=== PATIENT | male | born 1980 | race Caucasian/White ===

== ENCOUNTER 2024-03-06 11:55 | Outpatient (AMB) | payer OTHER, SELFPAY ==
--- NOTE | 2024-03-06 11:31 | MHC.PC.OV ---
Vital Signs 03/06/24 12:09 03/06/24 12:52 Height 6 ft 0.83 in Weight 241 lb 2 oz BMI 32.0 BP 169/98 H 130/92 H Blood Pressure Location Lt brachial Rt brachial Position Sitting Sitting Respiration 16 Pulse 65 Pulse Source Pulse Oximeter Temp 97.7 F Temp Source Oral Intake Visit Reasons: New patient Intake Note: New patient visit Outpatient Physical Therapist Assistant Required: No Allergies silver sulfadiazine Allergy (Unknown, Verified 03/06/24 12:06) chemical burn Tobacco use date assessed: 03/06/24 Dental Screening Dental Screen Date: 03/06/24 Did you have a dental visit in the last 12 months?: No Did you have a dental problem in the last 6 months where you did not have access to dental care?: No Was dental information given to patient?: Patient has dentist HPI HPI Comments History of Present Illness Details This is a 43-year-old male with a past medical history of obesity presenting to establish care with me. He needs a physical. Patient was seen by Dr. Feldman, but he says there was an error in medical records, and his record from [facility] was deleted. He says he was last seen about 2 years ago. His blood pressure is elevated today. His uncle has hypertension. No family history of heart disease. He smokes a cigar occasionally. He drinks 2 drinks 4 nights per week. It is usually whiskey or beer. Occasionally he has wine. He drinks 2 cups of coffee in the morning. He does not use decongestants. He has an umbilical hernia that is small on exam. It does not cause pain. He declines referral to General surgery. ROS: Constitutional: No unexplained weight loss, fever, chills, fatigue or night sweats. Eyes: No vision changes, blurry vision, double vision, eye pain, eye redness, eye discharge. ENT: No hearing loss, sneezing, congestion, runny nose or sore throat. Respiratory: No shortness of breath, cough or sputum production. Cardiovascular: No chest pain, chest pressure or chest discomfort. No palpitations or pedal edema. Gastrointestinal: No anorexia, nausea, vomiting or diarrhea. No abdominal pain or blood in stool. Genitourinary: No dysuria, hematuria, urinary frequency. No testicular masses, swelling, pain, discharge. Neurologic: No headache, dizziness, syncope, unilateral weakness, ataxia, numbness or tingling in the extremities. Musculoskeletal: No muscle pain, back pain, joint pain or swelling. Hematologic/Lymphatics: No bleeding or bruising. No painful lymph nodes. Skin: No rash or itching. Endocrine: No cold or heat intolerance. No polyuria or polydipsia. Psychiatric: No depression or anxiety. No SI/HI. Physical exam: Constitutional: Alert, in no distress. Head: Normocephalic. Eyes: Pupils are equal, round and reactive to light. Extraocular muscles intact. Ear, Nose and Throat: Canals clear. TMs normal. Normal nasal mucosa. No nasal discharge. No oral lesions. Neck: Supple, Full range of motion. No lymphadenopathy. No palpable thyroid masses. Respiratory: Clear to auscultation. Cardiovascular: S1 S2 regular. No murmurs. Gastrointestinal: Abdomen soft, non-tender, non-distended. Normal bowel sounds. No palpable masses. There is a small, reducible umbilical hernia. Genitourinary: Patient deferred.. Neurologic: No focal neurological deficits. Symmetric patellar reflexes. Moves all extremities spontaneously. Sensation intact bilaterally. Skin: No rashes or lesions. Musculoskeletal: No gross deformities. Normal range of motion. Extremities: Warm and well perfused. No clubbing, cyanosis or edema. 3+ peripheral pulses bilaterally. 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 1. Little interest or pleasure in doing things: not at all 2. Feeling down, depressed, or hopeless: not at all 3. Trouble falling or staying asleep, or sleeping too much: not at all 4. Feeling tired or having little energy: not at all 5. Poor appetite or overeating: not at all 6. Feeling bad about yourself - or that you are a failure or have let yourself or your family down: not at all 7. Trouble concentrating on things, such as reading the newspaper or watching television: not at all 8. Moving or speaking so slowly that other people could have noticed. Or the opposite - being so fidgety or restless that you have been moving around a lot more than usual: not at all 9. Thoughts that you would be better off or of hurting yourself in some way: not at all Total score: 0 Depression Screening Interpretation: Negative Depression Screening Done: Yes 29679 - PHQ-9 Billing: Yes Source: Developed by Drs. Adithya Rivera, Meg Trujillo, Mark Walter and colleagues, with an educational milton from [employer]. Thrive Questionnaire Date Thrive assessed: 03/06/24 I am a: Patient What is your living situation today?: I have a steady place to live Within the past 12 months, did the food you bought not last and you didn't have the money to get more?: Never true Within the past 12 months, did you worry whether your food would run out before you got money to buy more?: Never true Do you have trouble paying for medicines?: No Do you have trouble getting transportation to medical appointments?: No Do you have trouble paying your heating and electricity bill?: No Do you have trouble taking care of your child, family member or friend?: No Do you have trouble with day-to-day activities such as bathing, preparing meals, shopping, managing finances, etc.?: No Are you currently unemployed and looking for a job?: No Are you interested in more education?: No Please select the resources that you would like help with: None Currently or been in a relationship where the following occur: No concerns reported THRIVE Score: 0 AUDIT C Alcohol Use Questionnaire (AUDIT-C) 1. How often do you have a drink containing alcohol?: 2-3 times a week 2. How many drinks containing alcohol do you have on a typical day when you are drinking?: 1 or 2 3. How often do you have six or more drinks on one occasion?: Never Total Score: 3 TEJAS-7 AMB Questionnaire TEJAS-7 Date TEJAS - 7 assessed: 03/06/24 Feeling nervous, anxious, or on edge: 0 = Not at all Not being able to stop or control worryin = Not at all Worrying too much about different things: 0 = Not at all Trouble relaxin = Not at all Being so restless that it is hard to sit still: 0 = Not at all Becoming easily annoyed or irritable: 0 = Not at all Feeling afraid as if something awful might happen: 0 = Not at all Total TEJAS-7 score (0-4 normal; 5-9 mild; 10-14 moderate; 15-21 severe): 0 Source: Developed by Drs. Adithya Rivera, Meg Trujillo, Mark Walter and colleagues, with an educational milton from [employer]. TEJAS-7 Assessment Billing TEJAS-7 Assessment Tool: TEJAS-7 Assessment 95282 Physical exam (Primary Care) Vital Signs: Last Vital Signs Temp 97.7 F 03/06/24 12:09 Pulse 65 03/06/24 12:09 Resp 16 03/06/24 12:09 BP 130/92 H 03/06/24 12:52 BMI result Body Mass Index 32.0 Tobacco/Smoking Status: Tobacco use Status Tobacco use date assessed 03/06/24 03/06/24 11:32 Patient Tobacco Use Status Current someday Tobacco 03/06/24 12:13 Tobacco use type Cigar (occasionally) 03/06/24 12:13 e-Cigarette/Vaping Use Never Used 03/06/24 11:32 PHQ-9: PHQ-9 Score PHQ-9: Total score 0 03/06/24 17:30 Depression Screening Interpretation: Negative Thrive Assessment: Date of Thrive Assessment Date Thrive assessed 03/06/24 03/06/24 13:36 Currently or been in a relationship where the following occur: No concerns reported Assessment and Plan Assessment & Plan (1) Routine physical examination: Code(s): Z00.00 - Encounter for general adult medical examination without abnormal findings Plan: Patient is seen today for a routine physical. As part of this visit we reviewed the following issues, which are considered and essential part of preventative health in this age group: - Testicular cancer screening, which includes self exam teaching - Screening for colon cancer - due age 45 - Discussed Prostate cancer screening - Blood pressure screening - Cholesterol screening - Nutritional and exercise counseling - Counseling of injury prevention including fire prevention, smoke alarms and seat belt usage - Screening for depression - Prevention of and/or testing for infectious diseases - Education about skin cancer - Recommendations about immunizations - Recommendation of an eye exam - Screening for substance abuse (2) Obesity: Code(s): E66.9 - Obesity, unspecified Qualifiers: Obesity type: due to excess calories Obesity classification: adult class 1 (BMI 30 - 34.9) Serious obesity comorbidity presence: without serious comorbidity Body mass index: BMI 32.0-32.9 Qualified Code(s): E66.09 - Other obesity due to excess calories; Z68.32 - Body mass index [BMI] 32.0-32.9, adult Plan: Check fasting labs and TSH. Lifestyle modifications reviewed. He is motivated to work on weight loss. (3) Elevated blood pressure reading: Code(s): R03.0 - Elevated blood-pressure reading, without diagnosis of hypertension Plan: The patient and I reviewed lifestyle modifications in detail. He wants to try to avoid medication. He will implement these changes and follow up in 3 months to recheck. Plan Follow up in 3 months for a blood pressure recheck. Orders: Orders Lipid Panel 03/06/24 I10 - Essential (primary) hypertension, Z12.5 - Encounter for screening for malignant neoplasm of prostate, Z13.6 - Encounter for screening for cardiovascular disorders Comprehensive Met. Panel 03/06/24 I10 - Essential (primary) hypertension, Z12.5 - Encounter for screening for malignant neoplasm of prostate, Z13.6 - Encounter for screening for cardiovascular disorders Complete Blood Count no Diff 03/06/24 I10 - Essential (primary) hypertension, Z12.5 - Encounter for screening for malignant neoplasm of prostate, Z13.6 - Encounter for screening for cardiovascular disorders Prostate Specific Antigen 03/06/24 I10 - Essential (primary) hypertension, Z12.5 - Encounter for screening for malignant neoplasm of prostate, Z13.6 - Encounter for screening for cardiovascular disorders TSH reflex Free T4 03/06/24 I10 - Essential (primary) hypertension Coding Level of Care Code Est Pt Prev Care 40-64y(27548) Diagnoses Routine physical examination Z00.00 Class 1 obesity due to excess calories without serious comorbidity with body mass index (BMI) of 32.0 to 32.9 in adult E66.09; Z68.32 Obesity type: due to excess calories Obesity classification: adult class 1 (BMI 30 - 34.9) Serious obesity comorbidity presence: without serious comorbidity Body mass index: BMI 32.0-32.9 Elevated blood pressure reading R03.0 Additional Codes TEJAS-7 Assessment Billing - TEJAS-7 Assessment Tool: TEJAS-7 Assessment 78381 ([id number])
[2024-03-06 12:09] VITALS: BP 169/98; PULSE 65; RESP 16; TEMP 36.5; BMI 32.0
[2024-03-06 12:52] VITALS: BP 130/92
== END 2024-03-06 13:01 | disposition home or self-care (01) ==
PROVIDERS: PCP Family Medicine; Visit Provider Physician Assistant Medical
DX: Z00.00 Encounter for general adult medical examination without abnormal findings (principal); E66.09 Other obesity due to excess calories; Z68.32 Body mass index [BMI] 32.0-32.9, adult; R03.0 Elevated blood-pressure reading, without diagnosis of hypertension

== ENCOUNTER → 2024-03-06 11:55 | Outpatient (BNVA) | payer OTHER, SELFPAY | PROVIDERS: PCP Family Medicine; Visit Provider Physician Assistant Medical | DX: Z00.01 Encounter for general adult medical examination with abnormal findings (principal); R03.0 Elevated blood-pressure reading, without diagnosis of hypertension; E66.09 Other obesity due to excess calories; Z68.32 Body mass index [BMI] 32.0-32.9, adult | CPT/HCPCS: 96127 ==

== ENCOUNTER 2024-05-23 08:28 | Outpatient (REF) | payer OTHER, SELFPAY ==
[2024-05-23 11:51] LABS: Hematocrit 44.8 % (42.0-52.0); Hemoglobin 15.6 g/dl (14.0-18.0); Mean Corpuscular HGB Conc 34.8 g/dl (31.0-36.0); Mean Corpuscular Hemoglobin 31.3 pg (27.0-33.0); Mean Platelet Volume 9.7 fL (9.4-12.4); Platelet Count 246 X10*3/uL (160-400); Red Blood Count 4.98 X10*6/uL (4.60-5.80); Red Cell Distribution Width 11.9 % (11.0-16.0); White Blood Count 4.9 X10*3/uL (4.8-10.8)
[2024-05-23 12:30] LABS: Prostate Specific Antigen 1.22 ng/mL (<0.05-4.0)
[2024-05-23 12:42] LABS: TSH reflex Free T4 1.44 uIU/mL (0.32-4.0)
[2024-05-23 12:53] LABS: Anion Gap 12 (12-20)
[2024-05-23 12:58] LABS: Alanine Aminotransferase 23 U/L (0-40); Albumin Level 4.4 g/dL (3.5-5.0); Alkaline Phosphatase 41 U/L (39-117); Aspartate Amino Transferase 23 U/L (5-37); Bilirubin Total 0.9 mg/dL (0.0-1.0); Blood Urea Nitrogen 12 mg/dL (9-16); Calcium 9.5 mg/dL (8.4-10.2); Carbon Dioxide 30 mmol/L (22-29); Chloride 102 mmol/L (96-108); Cholesterol 236 mg/dL (<200); Estimated Glomerular Filt Rate > 60; Glucose Random 97 mg/dL (60-115); HDL Cholesterol 60 mg/dL (>40); LDL Cholesterol Calculated 162 mg/dL (<100); Potassium 4.4 mmol/L (3.3-5.1); Sodium 140 mmol/L (135-145); Total Protein 7.1 g/dL (6.5-8.0); Triglycerides 74 mg/dL (<150)
== END 2024-05-23 08:29 | disposition home or self-care (01) ==
LOC: HO.WFDLDS 08:28
PROVIDERS: Visit Provider Physician Assistant Medical
DX: Z12.5 Encounter for screening for malignant neoplasm of prostate (principal); Z13.6 Encounter for screening for cardiovascular disorders; I10 Essential (primary) hypertension
CPT/HCPCS: 36415; 80053; 80061; 84153; 84443; 85027

== ENCOUNTER 2024-05-29 11:32 | Outpatient (AMB) | payer OTHER, SELFPAY ==
--- NOTE | 2024-05-29 11:37 | A.OFFPC_ITS ---
Vital Signs 05/29/24 11:41 05/29/24 12:04 Height 6 ft 0.83 in Weight 228 lb 2 oz BMI 30.2 BP 144/80 H 138/90 H Blood Pressure Location Lt brachial Position Sitting Respiration 14 Pulse 76 Pulse Source Pulse Oximeter Pulse Oximetry (%) 97 Oxygen Delivery Method Room Air Intake Visit Reasons: HTN recheck Intake Note: follow up on htn Beef Specialist Required: No Allergies silver sulfadiazine Allergy (Unknown, Verified 05/29/24 11:37) chemical burn Tobacco use date assessed: 03/06/24 Dental Screening Dental Screen Date: 05/29/24 Did you have a dental visit in the last 12 months?: Yes Did you have a dental problem in the last 6 months where you did not have access to dental care?: No Was dental information given to patient?: Patient has dentist HPI HPI Comments History of Present Illness Details 44-year-old male with a past medical his tory of elevated blood pressure and obesity presents for follow up. The patient has been working on modifying his lifestyle. He decreased portion sizes. He lost 13 lb since February. Patient says during the past month he has not been able to exercise as much because he was selling his house. His elliptical wheels also broke so he ordered new ones. He also celebrated the and was not as good about his diet. His blood pressure today is still elevated. It is 138/90 when I rechecked it. He has no symptoms related to hypertension. He is a nonsmoker aside from an occasional cigar. He is decreasing caffeine consumption. He was drinking 2 cups of coffee per day. Today he did not have coffee. We reviewed his lab results with show that his LDL cholesterol is elevated though it has decreased since 2019. His ASCVD risk score is 2.6%. ROS: Constitutional: No unexplained weight loss, fever, chills, fatigue or night sweats. Eyes: No vision changes Respiratory: No shortness of breath Cardiovascular: No chest pain, chest pressure or chest discomfort. No palpitations or pedal edema. Neurologic: No headache, dizziness, syncope Physical exam: Constitutional: Alert, in no distress. Respiratory: Clear to auscultation. Cardiovascular: S1 S2 regular. No murmurs Neurologic: No focal neurological deficits. 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 1. Little interest or pleasure in doing things: not at all 2. Feeling down, depressed, or hopeless: not at all 3. Trouble falling or staying asleep, or sleeping too much: not at all 4. Feeling tired or having little energy: not at all 5. Poor appetite or overeating: not at all 6. Feeling bad about yourself - or that you are a failure or have let yourself or your family down: not at all 7. Trouble concentrating on things, such as reading the newspaper or watching television: not at all 8. Moving or speaking so slowly that other people could have noticed. Or the opposite - being so fidgety or restless that you have been moving around a lot more than usual: not at all 9. Thoughts that you would be better off or of hurting yourself in some way: not at all Total score: 0 78618 - PHQ-9 Billing: Yes Source: Developed by Drs. Adithya Rivera, Meg Trujillo, Mark Walter and colleagues, with an educational milton from [employer]. Thrive Questionnaire Date Thrive assessed: 05/29/24 I am a: Patient What is your living situation today?: I have a steady place to live Within the past 12 months, did the food you bought not last and you didn't have the money to get more?: Never true Within the past 12 months, did you worry whether your food would run out before you got money to buy more?: Never true Do you have trouble paying for medicines?: No Do you have trouble getting transportation to medical appointments?: No Do you have trouble paying your heating and electricity bill?: No Do you have trouble taking care of your child, family member or friend?: No Do you have trouble with day-to-day activities such as bathing, preparing meals, shopping, managing finances, etc.?: No Are you currently unemployed and looking for a job?: No Are you interested in more education?: No Please select the resources that you would like help with: None Currently or been in a relationship where the following occur: No concerns reported THRIVE Score: 0 AUDIT C Alcohol Use Questionnaire (AUDIT-C) 1. How often do you have a drink containing alcohol?: 2-3 times a week Total Score: 3 TEJAS-7 AMB Questionnaire TEJAS-7 Date TEJAS - 7 assessed: 05/29/24 Feeling nervous, anxious, or on edge: 0 = Not at all Not being able to stop or control worryin = Not at all Worrying too much about different things: 0 = Not at all Trouble relaxin = Not at all Being so restless that it is hard to sit still: 0 = Not at all Becoming easily annoyed or irritable: 0 = Not at all Feeling afraid as if something awful might happen: 0 = Not at all Total TEJAS-7 score (0-4 normal; 5-9 mild; 10-14 moderate; 15-21 severe): 0 Source: Developed by Drs. Adithya Rivera, Meg Trujillo, Mark Walter and colleagues, with an educational milton from [employer]. TEJAS-7 Assessment Billing TEJAS-7 Assessment Tool: TEJAS-7 Assessment 25641 Physical exam (Primary Care) Vital Signs: Last Vital Signs Pulse 76 05/29/24 11:41 Resp 14 05/29/24 11:41 BP 144/80 H 05/29/24 11:41 Pulse Ox 97 05/29/24 11:41 Oxygen Delivery Method Room Air 05/29/24 11:41 BMI result Body Mass Index 30.2 Tobacco/Smoking Status: Tobacco use Status Tobacco use date assessed 03/06/24 05/29/24 11:39 Patient Tobacco Use Status Current someday Tobacco 05/29/24 11:39 Tobacco use type Cigar (occasionally) 05/29/24 11:39 e-Cigarette/Vaping Use Never Used 05/29/24 11:39 PHQ-9: PHQ-9 Score PHQ-9: Total score 0 05/29/24 11:39 Thrive Assessment: Date of Thrive Assessment Date Thrive assessed 05/29/24 05/29/24 11:39 Currently or been in a relationship where the following occur: No concerns reported Coding Level of Care Code Est Pt Level 4 (03552) Complex EM visit Add On G2211 Diagnoses Pure hypercholesterolemia E78.00 Essential hypertension I10 Class 1 obesity E66.811 Additional Codes TEJAS-7 Assessment Billing - TEJAS-7 Assessment Tool: TEJAS-7 Assessment 50793 ([id number]) PHQ-9 - 85540 - PHQ-9 Billing: Yes ([id number]) Assessment & Plan Assessment & Plan (1) Pure hypercholesterolemia: Code(s): E78.00 - Pure hypercholesterolemia, unspecified Category: Medical (2) Essential hypertension: Code(s): I10 - Essential (primary) hypertension Category: Medical (3) Class 1 obesity: Code(s): E66.811 - Obesity, class 1 Category: Medical Plan Congratulated patient on weight loss. He will continue with lifestyle modification. He declines medication for hypertension. He would like to work on his diet and wait for another 4 months and return for a visit. I gave him a prescription for a blood pressure cuff to check readings at home. Advised him to bring this with him to his next appointment. We discussed following the Mediterranean diet and increasing fibrous fruits and vegetables in his diet. He will recheck his lipid profile a week before his next appointment. Fortunately 10 year ASCVD risk score is low. Follow up in 4 months for hyperlipidemia and hypertension. Orders: Orders Lipid Panel 4 Months E78.5 - Hyperlipidemia, unspecified Medications: New miscellaneous medical supply (Blood Pressure Cuff) As directed 1 ea 0RF R03.0 - Elevated blood-pressure reading, without diagnosis of hypertension
[2024-05-29 11:41] VITALS: BP 144/80; PULSE 76; RESP 14; O2SAT 97; BMI 30.2
[2024-05-29 12:04] VITALS: BP 138/90
== END 2024-05-29 12:16 | disposition home or self-care (01) ==
PROVIDERS: PCP Physician Assistant Medical; Visit Provider Physician Assistant Medical
DX: E78.00 Pure hypercholesterolemia, unspecified (principal); I10 Essential (primary) hypertension; E66.811 Obesity, class 1; Z68.30 Body mass index [BMI] 30.0-30.9, adult

== ENCOUNTER 2024-10-05 11:36 | Outpatient (AMB) | payer OTHER, SELFPAY ==
--- NOTE | 2024-10-05 11:44 | A.OFFPC_ITS ---
Vital Signs 10/05/24 11:49 10/05/24 11:53 Height 6 ft 1 in Weight 231 lb 4 oz BMI 30.5 BP 118/82 122/68 Blood Pressure Location Rt brachial Lt brachial Position Sitting Sitting Pulse 63 Pulse Source Pulse Oximeter Temp 98.6 F Temp Source Temporal Artery Scan Pulse Oximetry (%) 97 Oxygen Delivery Method Room Air Intake Visit Reasons: recheck BP and HLD Intake Note: Buster presents in the office today for recheck of his blood pressure and is HLD. Allergies silver sulfadiazine Allergy (Unknown, Verified 10/05/24 11:47) chemical burn Tobacco use date assessed: 10/05/24 Dental Screening Dental Screen Date: 10/05/24 Did you have a dental visit in the last 12 months?: Yes Did you have a dental problem in the last 6 months where you did not have access to dental care?: No Was dental information given to patient?: Patient has dentist HPI HPI Comments History of Present Illness Details 44-year-old male with a past medical his tory of elevated blood pressure and obesity presents for follow up. Since February 2024 he has kept off 10 lb. He likes to do the elliptical and bike. His blood pressure at his last appointment was elevated at 138/90. Today his blood pressure is normal. He has been working on lifestyle modifications. His labs show that he had elevated LDL cholesterol though it had decreased since 2019. When his ASCVD risk score was calculated at that time it was 2.6%. He occasionally has a cigar, but he does not smoke cigarettes. He denies chest pain or shortness of breath. ROS: Constitutional: No unexplained weight loss, fever, chills, fatigue or night sweats. Eyes: No vision changes Respiratory: No shortness of breath Cardiovascular: No chest pain, chest pressure or chest discomfort. No palpitations or pedal edema. Neurologic: No headache, dizziness, syncope Physical exam: Constitutional: Alert, in no distress. Respiratory: Clear to auscultation. Cardiovascular: S1 S2 regular. No murmurs Neurologic: No focal neurological deficits. [facility] Medical History (Updated 05/29/24 @ 13:44 by BASSEM Perez) Class 1 obesity Essential hypertension Pure hypercholesterolemia Elevated blood pressure reading Obesity Routine physical examination Family History Mother Breast cancer Maternal Grandmother Breast cancer Social History (Updated 10/05/24 @ 11:48 by Raya Torres MA) Housing: House Alcohol intake: current Patient Tobacco Use Status: Current someday Tobacco user Tobacco use type: Cigar (occasionally) Years Smoked: 8 e-Cigarette/Vaping Use: Never Used Second Hand Smoke Exposure: No service: Yes Current occupational status: employed 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 1. Little interest or pleasure in doing things: not at all 2. Feeling down, depressed, or hopeless: not at all 3. Trouble falling or staying asleep, or sleeping too much: not at all 4. Feeling tired or having little energy: not at all 5. Poor appetite or overeating: not at all 6. Feeling bad about yourself - or that you are a failure or have let yourself or your family down: not at all 7. Trouble concentrating on things, such as reading the newspaper or watching television: not at all 8. Moving or speaking so slowly that other people could have noticed. Or the opposite - being so fidgety or restless that you have been moving around a lot more than usual: not at all 9. Thoughts that you would be better off or of hurting yourself in some way: not at all Total score: 0 Depression Screening Interpretation: Negative Depression Screening Done: Yes 75189 - PHQ-9 Billing: Patient declined-do not bill Source: Developed by Drs. Adithya Rivera, Meg Trujillo, Mark Walter and colleagues, with an educational milton from [employer]. Thrive Questionnaire Date Thrive assessed: 10/05/24 I am a: Patient What is your living situation today?: I have a steady place to live Within the past 12 months, did the food you bought not last and you didn't have the money to get more?: Never true Within the past 12 months, did you worry whether your food would run out before you got money to buy more?: Never true Do you have trouble paying for medicines?: No Do you have trouble getting transportation to medical appointments?: No Do you have trouble paying your heating and electricity bill?: No Do you have trouble taking care of your child, family member or friend?: No Do you have trouble with day-to-day activities such as bathing, preparing meals, shopping, managing finances, etc.?: No Are you currently unemployed and looking for a job?: No Are you interested in more education?: No Please select the resources that you would like help with: None Currently or been in a relationship where the following occur: No concerns reported THRIVE Score: 0 AUDIT C Alcohol Use Questionnaire (AUDIT-C) 1. How often do you have a drink containing alcohol?: 2-3 times a week 2. How many drinks containing alcohol do you have on a typical day when you are drinking?: 1 or 2 3. How often do you have six or more drinks on one occasion?: Monthly Total Score: 5 Score Reviewed/Action Taken: No TEJAS-7 AMB Questionnaire TEJAS-7 Date TEJAS - 7 assessed: 10/05/24 Feeling nervous, anxious, or on edge: 0 = Not at all Not being able to stop or control worryin = Not at all Worrying too much about different things: 0 = Not at all Trouble relaxin = Not at all Being so restless that it is hard to sit still: 0 = Not at all Becoming easily annoyed or irritable: 0 = Not at all Feeling afraid as if something awful might happen: 0 = Not at all Total TEJAS-7 score (0-4 normal; 5-9 mild; 10-14 moderate; 15-21 severe): 0 Source: Developed by Drs. Adithya Rivera, Meg Trujillo, Mark Walter and colleagues, with an educational milton from [employer]. TEJAS-7 Assessment Billing TEJAS-7 Assessment Tool: TEJAS-7 Assessment 11237 ACT Questionnaire In the past 4 weeks, how much of the time did your asthma keep you from getting as much done at work, school or at home?: None of the time Score: 5 Physical exam (Primary Care) Vital Signs: Last Vital Signs Temp 98.6 F 10/05/24 11:49 Pulse 63 10/05/24 11:49 BP 122/68 10/05/24 11:53 Pulse Ox 97 10/05/24 11:49 Oxygen Delivery Method Room Air 10/05/24 11:49 BMI result Body Mass Index 30.5 Tobacco/Smoking Status: Tobacco use Status Tobacco use date assessed 10/05/24 10/05/24 11:53 Patient Tobacco Use Status Current someday Tobacco 10/05/24 11:48 Tobacco use type Cigar (occasionally) 10/05/24 11:48 e-Cigarette/Vaping Use Never Used 10/05/24 11:48 PHQ-9: PHQ-9 Score PHQ-9: Total score 0 10/05/24 12:17 Depression Screening Interpretation: Negative Thrive Assessment: Date of Thrive Assessment Date Thrive assessed 10/05/24 10/05/24 11:53 Currently or been in a relationship where the following occur: No concerns reported Coding Level of Care Code Est Pt Level 3 (09095) Complex EM visit Add On G2211 Diagnoses Pure hypercholesterolemia E78.00 Essential hypertension I10 Class 1 obesity E66.811 Additional Codes TEJAS-7 Assessment Billing - TEJAS-7 Assessment Tool: TEJAS-7 Assessment 49467 ([id number]) Assessment & Plan Assessment & Plan (1) Pure hypercholesterolemia: Code(s): E78.00 - Pure hypercholesterolemia, unspecified Category: Medical (2) Essential hypertension: Code(s): I10 - Essential (primary) hypertension Category: Medical (3) Class 1 obesity: Code(s): E66.811 - Obesity, class 1 Category: Medical Plan Congratulated patient on weight loss. He will continue with lifestyle modification. His blood pressure normalized. He has lost weight. Continue low-sodium diet and avoid caffeine. He will return to check a fasting lipid profile. Recommended Mediterranean diet. Follow up for a physical exam in 6 months.
[2024-10-05 11:49] VITALS: BP 118/82; PULSE 63; TEMP 37; O2SAT 97; BMI 30.5
[2024-10-05 11:53] VITALS: BP 122/68
== END 2024-10-05 12:30 | disposition home or self-care (01) ==
LOC: HO.HMCFM 11:37
PROVIDERS: PCP Physician Assistant Medical; Visit Provider Physician Assistant Medical
DX: E78.00 Pure hypercholesterolemia, unspecified (principal); I10 Essential (primary) hypertension; E66.811 Obesity, class 1; Z68.30 Body mass index [BMI] 30.0-30.9, adult

== ENCOUNTER → 2024-10-05 11:36 | Outpatient (BNVA) | payer OTHER, SELFPAY | PROVIDERS: PCP Physician Assistant Medical; Visit Provider Physician Assistant Medical | DX: E78.00 Pure hypercholesterolemia, unspecified (principal); I10 Essential (primary) hypertension; E66.811 Obesity, class 1; Z68.30 Body mass index [BMI] 30.0-30.9, adult | CPT/HCPCS: 96127 ==